=== PATIENT | female | born 1955 | race Caucasian/White ===

== ENCOUNTER 2019-09-26 06:39 | Day surgery (SDC) | payer MEDICAID ==
[~2019-09-26] VITALS: Ht 147.3 cm; Wt 70.3 kg
[2019-09-26 07:39] LABS: HEMATOCRIT 45.8 % (36.0-48.0); HEMOGLOBIN 15.3 g/dL (12-16); MCHC 33.4 g/dL (31.0-37.0); MCV 92.7 fL (80.0-100.0); MEAN PLATELET VOLUME 10.9 fL (7.4-10.4); RBC 4.94 10x6/uL (4.00-5.40); RDW 14.9 % (11.5-14.5); WBC 12.4 10x3/uL (4.8-10.8)
[2019-09-26] MEDS ORDERED: COZAAR100 MG PO (07:47)
[2019-09-26] MEDS ORDERED: PROPRANOLOL HCL20 MG PO (07:48)
[2019-09-26] MEDS ORDERED: CYCLOBENZAPRINE10 MG PO (07:48)
[2019-09-26 07:57] VITALS: BP 145/95; Ht 147.3 cm; Wt 70.3 kg
[2019-09-26] MEDS ORDERED: ULTRAM50 MG PO (10:42)
== END 2019-09-26 13:15 | disposition home or self-care (01) ==
LOC: D.OPS 06:39 → D.PAN 09:45 → D.OPS 13:15
PROVIDERS: Anesthesiology; ATTEND Surgery
DX: K43.0 Incisional hernia with obstruction, without gangrene (principal); I10 Essential (primary) hypertension; Z72.0 Tobacco use

== ENCOUNTER 2019-12-30 08:00 | Outpatient (CLI) | payer MEDICAID ==
[2019-09-26 07:57] VITALS: BMI 32.4
[~2019-12-30 08:00] MED LIST: COZAAR100 MG PO; CYCLOBENZAPRINE10 MG PO; PROPRANOLOL HCL20 MG PO; ULTRAM50 MG PO
== END 2019-12-30 12:56 | disposition home or self-care (01) ==
LOC: D.MAMMO 08:00
PROVIDERS: ATTEND Nurse Practitioner Family
DX: Z12.31 Encounter for screening mammogram for malignant neoplasm of breast (principal)